=== PATIENT | male | born 1955 | race American Indian/Alaskan Native ===

== ENCOUNTER 2017-07-04 07:08 | Outpatient (CLI) | payer SELFPAY ==
[2017-07-04 14:14] VITALS: BP 137/89
--- NOTE | 2017-07-05 13:03 | Treadmill Report ---
THALLIUM STRESS TEST LEFT VENTRICLE: Left ventricle is severely dilated. There is a large anterior lateral and apical defect consistent with a large prior anterolateral wall myocardial infarction. There is no significant periinfarct ischemia. Gated analysis demonstrates severe left ventricular systolic dysfunction with ejection fraction 24%. CONCLUSION: Study demonstrates a previous large anterior and lateral wall infarct, with no significant periinfarct ischemia. There is severe ischemic cardiomyopathy, ejection fraction 24%. Clinical correlation is recommended. JOB# [id number] CA/NTS
== END 2017-07-04 07:09 | disposition home or self-care (01) ==
LOC: ECHO 07:08
PROVIDERS: ATTEND Internal Medicine Cardiovascular Disease
DX: I08.3 Combined rheumatic disorders of mitral, aortic and tricuspid valves (principal); I25.5 Ischemic cardiomyopathy
CPT/HCPCS: 78452; 93017; 93306; A9502